=== PATIENT | female | born 1970 ===

== ENCOUNTER → 2016-06-03 | Outpatient (CLI) | payer OTHER ==
--- NOTE | 2016-06-03 13:28 | DX ---
Right Wrist, 4 views including a scaphoid view History: Pain post trauma. Findings: The joint space between the scaphoid and the lunate is widened suggesting a sprain or tear of the scapholunate ligament. No fracture or dislocation is identified. Impression: Potentially an acute injury to the scapholunate ligament. No fracture.
== END ==
LOC: BMCIMAGING 13:06
PROVIDERS: ATTEND Family Medicine
DX: M25.531 Pain in right wrist (principal)